=== PATIENT | female | born 1940 | race African-American/Black ===

== ENCOUNTER 2016-08-10 11:06 | Observation (INO) ==
[2016-08-10 11:22] LABS: URINE CULTURE PL NEEDED? NO
[2016-08-10 11:42] LABS: BILIRUBIN URINE NEGATIVE (NEGATIVE); BLOOD URINE NEGATIVE (NEGATIVE); CLARITY CLEAR (CLEAR); COLOR YELLOW; GLUCOSE URINE NEGATIVE (NEGATIVE); LEUKOCYTES URINE NEGATIVE (NEGATIVE); NITRITE URINE NEGATIVE (NEGATIVE); PROTEIN URINE NEGATIVE (NEGATIVE); SP GRAVITY URINE 1.015; URINE EPITHELIAL CELLS <10 /HPF (<10); URINE SOURCE CLEAN CATCH; URINE WBC <10 /HPF (<10); UROBILINOGEN URINE NORMAL
[2016-08-10 11:49] LABS: MANUAL DIFF NEEDED? NO
[2016-08-10 11:53] LABS: BASO% 0.5 % (0.0-0.8); EOS# 0.47 X1000 (0.0-0.7); EOS% 4.5 % (0.0-10.0); HEMATOCRIT 34.5 % (37.0-47.0); HEMOGLOBIN 11.2 g/dL (12.0-16.0); IMM GRAN# 0.02 X1000 (0.0-0.04); IMM GRAN% 0.2 % (0.0-0.5); LYMPH% 27.9 % (20.5-51.1); MCH 29.6 PG (27-31); MCHC 32.5 g/dL (33-37); MONO# 0.75 X1000 (0.11-0.59); MONO% 7.2 % (1.7-9.3); MPV 10.6 FL (7.4-10.4); NEUT% 59.7 % (42.2-75.2); PLT 227 X1000 (130-400); RBC 3.79 XMIL (4.2-5.4)
[2016-08-10 12:11] LABS: INR 0.99 (0.86-1.15); PROTIME 13.4 Seconds (12.1-15.5)
[2016-08-10 12:12] LABS: PTT PL 28.5 Seconds (22.6-43.9)
[2016-08-10 12:18] LABS: ALBUMIN 4.1 g/dL (3.5-5.0); POTASSIUM 4.7 mmol/L (3.5-5.1); TOTAL BILIRUBIN 0.6 mg/dL (0.20-1.00); TOTAL PROTEIN 6.8 g/dL (6.3-8.3)
--- NOTE | 2016-08-10 12:19 | PROVIDER DOCUMENTATION ---
HPI-Syncope/Dizziness - General Chief Complaint: B/P Problems Stated Complaint: B/P PROB Time Seen by Provider: 08/10/16 12:00 Source: patient Allergies/Adverse Reactions: Patient Allergies Allergy/AdvReac Type Severity Reaction Status Date / Time No Known Allergies Allergy Unverified 12/28/12 20:38 Home Medications: Home Medication List Medication Instructions Recorded Confirmed Last Taken Type Hydrocodone/Acetaminophen [Vicodin 1 each PO TID PRN #21 tablet 02/13/13 Unknown Rx 5-300 mg Tablet] - History of Present Illness-Syncope/Dizzy Nature of Presenting Problem: patient is a 75 yo F that presents low BP x 24 hours. She reports no new meds or chest pain. She has had dizziness and shortness of breath. Patient has boot on left leg due to fx 5th metatarsal. patient has history chf Onset/Duration: reports: gradual, 24 hours ago Timing: reports: still present, constant Recently Seen Here or By Another Healthcare Provider: No - Dizziness Severity in ED: reports: moderate Dizziness Related Current/Associated Symptoms: reports: lightheaded, dizzy, lightheaded. denies: nausea/vomiting, pale, weak pulse Any recent trauma/injury?: reports: none Modifying Factors: improves with: nothing Patient usually:: reports: walks without assistance Review of Systems - Adult - REVIEW OF SYSTEMS - ADULT Constitutional: denies: chills, fever Eyes: denies: decreased vision, blurred vision, double vision Ears, Nose, Mouth & Throat: denies: ear discharge, ear pain, sinus problem, throat pain, throat swelling Cardiovascular: denies: chest pain, palpitations, syncope Respiratory: reports: shortness of breath. denies: cough, wheezing Gastrointestinal: denies: abdominal pain, diarrhea, nausea, vomiting Genitourinary: reports: no symptoms reported Musculoskeletal: reports: no symptoms reported Integumentary: reports: no symptoms reported Neurological: reports: dizziness/vertigo. denies: headache/migraines, seizure, syncope Psychiatric: reports: no symptoms reported Endocrine: reports: no symptoms reported Hematologic/Lymphatic: reports: no symptoms reported Allergic/Immunologic: reports: no symptoms reported All Other Systems: Reviewed and Negative Past History - Adult - PAST MEDICAL HISTORY-ADULT Review of Records: reports: Old Records Reviewed, Nursing Assessment Review, Medications Reviewed Cardiovascular: reports: CHF, HTN, hyperlipidemia Respiratory: reports: asthma, sleep apnea Musculoskeletal: reports: chronic pain Psychiatric: reports: anxiety - PRIOR SURGERIES/PROCEDURES Surgical/Procedure History: reports: hysterectomy, joint replacement (tka), back /neck (x3back) - IMMUNIZATION STATUS Childhood Immunizations: See Nurse Assessment Flu Vaccine: See Nurse Assessment - FAMILY HISTORY Family History: reviewed, not pertinent - SOCIAL HISTORY Smoking: quit greater than 1 year, cigarettes Living Situation: family Physical Exam-General - PHYSICAL EXAM-ADULT Initial Vital Signs Reviewed: Yes - CONSTITUTIONAL General Appearance: alert, mild distress - EYES Eyes: PERRL/EOMI, pink conjunctivae - HEAD, EARS, NOSE, MOUTH & THROAT HENMT: normocephalic/atraumatic, moist mucous membranes, normal ENT inspection - NECK Neck: full range of motion, normal inspection - RESPIRATORY Respiratory: lungs clear, normal breath sounds, no respiratory distress, no accessory muscle use - CARDIOVASCULAR Cardiovascular: no gallop, no murmur, bradycardia - GASTROINTESTINAL (ABDOMEN) Abdominal Exam: normal bowel sounds, non tender, soft, no organomegaly, no pulsatile mass - MUSCULOSKELETAL Extremity: no calf tenderness, normal capillary refill, pelvis stable, other ( ortho boot to left lower leg) - SKIN Integumentary: normal color, normal turgor, warm/dry - NEUROLOGIC Neurologic: grossly normal, no motor/sensory deficits - PSYCHIATRIC Psych/Mental Status: normal mood/affect, normal thought content, normal thought process, oriented x 3 Progress - PLAN OF CARE/RESULTS Progress/Plan/Lab Results: Vital Signs - 8 hr 08/10/16 11:10 08/10/16 12:12 Temperature 97.6 F Pulse Rate 46 L 42 L Respiratory Rate 19 14 Blood Pressure 98/56 99/66 O2 Sat by Pulse Oximetry 98 97 Laboratory Results - last 24 hr 08/10/16 08/10/16 08/10/16 11:17 11:39 11:39 WBC 10.38 RBC 3.79 L Hgb 11.2 L Hct 34.5 L MCV 91.0 MCH 29.6 MCHC 32.5 L RDW Std Deviation 16.1 H Plt Count 227 MPV 10.6 H Immature Gran % (Auto) 0.2 Neut % (Auto) 59.7 Lymph % (Auto) 27.9 Phillips % (Auto) 7.2 Eos % (Auto) 4.5 Baso % (Auto) 0.5 Immature Gran # (Auto) 0.02 Neut # (Auto) 6.19 Lymph # (Auto) 2.90 Phillips # (Auto) 0.75 H Eos # (Auto) 0.47 Baso # (Auto) 0.05 PT INR APTT (Factor Assay) D-Dimer Sodium 133 L Potassium 4.7 Chloride 98 Carbon Dioxide 24 L Anion Gap 12 BUN 19 Creatinine 1.1 H Estimated GFR/1.73 m2 49 BUN/Creatinine Ratio 17 Glucose 97 Calculated Osmolality 269 Calcium 9.0 Magnesium Total Bilirubin 0.60 AST 20 ALT 18 Alkaline Phosphatase 103 Creatine Kinase 104 Troponin T Total Protein 6.8 Albumin 4.1 Globulin 3.0 Albumin/Globulin Ratio 2.0 Plasma Lactate TSH Urine Source CLEAN CATCH Urine Color YELLOW Urine Clarity CLEAR Urine pH 6.0 Ur Specific [place] 1.015 Urine Protein NEGATIVE Urine Ketones NEGATIVE Urine Blood NEGATIVE Urine Nitrite NEGATIVE Urine Bilirubin NEGATIVE Urine Urobilinogen NORMAL Urine WBC NEGATIVE Urine Microscopic WBC <10 Ur Epithelial Cells <10 Urine Bacteria 1+ Urine Glucose NEGATIVE 08/10/16 08/10/16 08/10/16 11:39 11:39 11:39 WBC RBC Hgb Hct MCV MCH MCHC RDW Std Deviation Plt Count MPV Immature Gran % (Auto) Neut % (Auto) Lymph % (Auto) Phillips % (Auto) Eos % (Auto) Baso % (Auto) Immature Gran # (Auto) Neut # (Auto) Lymph # (Auto) Phillips # (Auto) Eos # (Auto) Baso # (Auto) PT 13.4 INR 0.99 APTT (Factor Assay) 28.5 D-Dimer Sodium Potassium Chloride Carbon Dioxide Anion Gap BUN Creatinine Estimated GFR/1.73 m2 BUN/Creatinine Ratio Glucose Calculated Osmolality Calcium Magnesium Total Bilirubin AST ALT Alkaline Phosphatase Creatine Kinase Troponin T < 0.010 Total Protein Albumin Globulin Albumin/Globulin Ratio Plasma Lactate 1.0 TSH Urine Source Urine Color Urine Clarity Urine pH Ur Specific [place] Urine Protein Urine Ketones Urine Blood Urine Nitrite Urine Bilirubin Urine Urobilinogen Urine WBC Urine Microscopic WBC Ur Epithelial Cells Urine Bacteria Urine Glucose 08/10/16 08/10/16 08/10/16 11:39 11:39 11:39 WBC RBC Hgb Hct MCV MCH MCHC RDW Std Deviation Plt Count MPV Immature Gran % (Auto) Neut % (Auto) Lymph % (Auto) Phillips % (Auto) Eos % (Auto) Baso % (Auto) Immature Gran # (Auto) Neut # (Auto) Lymph # (Auto) Phillips # (Auto) Eos # (Auto) Baso # (Auto) PT INR APTT (Factor Assay) D-Dimer 0.87 H Sodium Potassium Chloride Carbon Dioxide Anion Gap BUN Creatinine Estimated GFR/1.73 m2 BUN/Creatinine Ratio Glucose Calculated Osmolality Calcium Magnesium 2.3 Total Bilirubin AST ALT Alkaline Phosphatase Creatine Kinase Troponin T Total Protein Albumin Globulin Albumin/Globulin Ratio Plasma Lactate TSH 7.06 H Urine Source Urine Color Urine Clarity Urine pH Ur Specific [place] Urine Protein Urine Ketones Urine Blood Urine Nitrite Urine Bilirubin Urine Urobilinogen Urine WBC Urine Microscopic WBC Ur Epithelial Cells Urine Bacteria Urine Glucose Orders Category Date Time Status Cardiac Monitoring DIRECTED Care 08/10/16 11:14 Active IV Insertion ORDERED Care 08/10/16 11:14 Completed ANGIOGRAM/PULMONARY ARTERIES [CT] Stat Exams 08/10/16 13:35 Taken CHEST-2 VIEWS [RAD] Stat Exams 08/10/16 11:14 Draft BLOOD CULTURE [BLDCUL] Stat Lab 08/10/16 11:14 Ordered CBC WITH DIFF [HEME] Stat Lab 08/10/16 11:39 Completed CK PROFILE [SP CHEM] Stat Lab 08/10/16 11:39 Completed COMPREHENSIVE METABOLIC PANEL [CHEM] Stat Lab 08/10/16 11:39 Completed D-DIMER PL [COAG] Stat Lab 08/10/16 11:39 Completed LACTATE, PLASMA [CHEM] Stat Lab 08/10/16 11:39 Completed MAGNESIUM [CHEM] Stat Lab 08/10/16 11:39 Completed PROTIME WITH INR PL [COAG] Stat Lab 08/10/16 11:[address] [COAG] Stat Lab 08/10/16 11:39 Completed TROPONIN T Stat Lab 08/10/16 11:39 Completed TSH Stat Lab 08/10/16 11:[address] W/POSS RFLX CULT [URINALYSIS] Stat Lab 08/10/16 11:17 Completed Oxygen Device Stat Oth 08/10/16 11:14 Active EKG [EKG] Stat Ther 08/10/16 12:24 Draft 1337-ct pe study ordered due to elevated dimer Result Diagrams: 08/10/16 11:39 08/10/16 11:39 - EKG 1 Time of EKG reading by physician:: 12:30 EKG Read and Signed by:: Armaan Dhaliwal EKG Interpretation (*Must complete 3 of following elements*): Abnormal Rate: 43 Rhythm: Sinus bradycardia(marked) [place]: normal QRS: normal, NSIVCD ST Wave: non-specific ST changes - XRAY 1 XRAY Study: Chest Impression: Abnormal XRAY Interpretation: stable, calcified nodes and granuloma - CT/MRI 1 CT Study: Angiogram (PE) Impression: Abnormal CT Results: granuloman, no PE - CONSULTS/PCP/HOSPITALIST Notification #1 *Consult/PCP/Hospitalist*: radio electronics technician for hospitalist Time Discussed: 14:27 Consult Disposition: Will see in ED, Admit Departure - Departure Time of Disposition Decision: 14:27 DIAGNOSIS: Dizziness, Bradycardia, Shortness of breath Hypothyroidism Qualifiers: Hypothyroidism type: acquired Qualified Code(s): E03.9 - Hypothyroidism, unspecified Disposition: ADMITTED INPATIENT 09 Certified Medical Emergency: Emergent Condition: Stable Referrals and Follow-Ups: Manny Finn MD [Primary Care Provider] -
--- NOTE | 2016-08-10 12:42 | Diag Imaging Result Document ---
PROCEDURE NAME: CHEST-2 VIEWS - 08/10/2016 TWO VIEWS OF THE CHEST: FINDINGS: There are calcified nodes in the subcarina and both carisa. There is a calcified granuloma in the lingula. Compared to 12/21/2012, there has been no significant change in the appearance of the chest. IMPRESSION: Stable chest.
--- NOTE | 2016-08-10 13:04 | EKG Report ---
Test Performed on : 08/10/2016 12:30:17 PM Test Reason : dizzines, hr 30s to 40s Blood Pressure : / mmHG Vent. Rate : 043 BPM Atrial Rate : 043 BPM P-R Int : 178 ms QRS Dur : 088 ms QT Int : 490 ms P-R-T Axes : 042 -09 017 degrees QTc Int : 414 ms Marked sinus bradycardia. Nonspecific T wave abnormality Abnormal ECG No previous ECGs available Unconfirmed Result
--- NOTE | 2016-08-10 14:32 | Diag Imaging Result Document ---
PROCEDURE NAME: ANGIOGRAM/PULMONARY ARTERIES - 08/10/2016 CT CHEST WITH INTRAVENOUS CONTRAST. FINDINGS: Normal opacification of the pulmonary arteries and their major branches. No filling defects. No pleural effusions. No cardiomegaly. Moderate atherosclerosis. No aortic dissection. There are many calcified mediastinal and hilar lymph nodes and there is a calcified granuloma inferiorly in the left upper lobe with a questionable additional 4 mm granuloma anteriorly in the left upper lobe. No consolidation. No bronchiectasis. IMPRESSION: 1. No pulmonary emboli. 2. There is evidence of a prior granulomatous infection. A preliminary report was given at 2:12 p.m.
--- NOTE | 2016-08-10 16:10 | HISTORY AND PHYSICAL ---
PRIMARY CARE PHYSICIAN: Dr. Finn. CHIEF COMPLAINT: Decreased blood pressure, dizziness and shortness of breath x24 hours. HISTORY OF PRESENTING ILLNESS: This is a 75-year-old female who presents to [facility] with complaints of low blood pressure, dizziness and shortness of breath for the past 24 hours that had progressively worsened. When she arrived to the emergency room, she was noted to have a pulse of 46 and a blood pressure of 98/56. She has a D- dimer of 0.87. Pulmonary arteriogram was obtained that showed no pulmonary emboli. It is noted that she is on several blood pressure medications, including metoprolol, amlodipine, lisinopril, spironolactone. This is most likely the cause of the bradycardia and hypotension, but we will admit her, hold some of her medications, evaluate and treat. PAST MEDICAL HISTORY: Hypertension, dyslipidemia, rheumatoid arthritis, anemia, fracture of the fifth metatarsal of her foot, CHF, asthma and sleep apnea. PAST SURGICAL HISTORY: A hysterectomy, total knee arthroscopy, and back surgery x3. FAMILY HISTORY: Noncontributory. SOCIAL HISTORY: She currently lives with family. Denies any tobacco use currently stating she has been quit for about 30 years. Denies any alcohol or illicit drug use. ALLERGIES: She has no known drug allergies. HOME MEDICATIONS: We will hold her Norvasc 10 mg p.o. daily. Metoprolol 25 mg p.o. daily will be held. We will continue her: 1. Lipitor 40 mg p.o. daily. 2. Folic acid 2 mg p.o. daily. 3. Lisinopril 5 mg p.o. daily. 4. Omeprazole 20 mg p.o. daily. 5. Oxycodone 10 one p.o. t.i.d. 6. Spironolactone 25 mg p.o. daily. 7. Tizanidine 4 mg p.o. t.i.d. 8. Desyrel 100 mg p.o. at bedtime. LABORATORY DATA: Showed a white blood cell count of 10.38, hemoglobin 11.2, hematocrit 34.5, platelets 227. PT and INR of 13.4 and 0.99 with a D-dimer of 0.87. Sodium 133, potassium 4.7, chloride 98, CO2 24, BUN of 19, creatinine 1.1. Magnesium 2.3. Creatine kinase 104. Troponin less than 0.010. Plasma lactate of 1. TSH of 7.06. Urinalysis was negative. RADIOLOGIC DATA: Chest x-ray: Stable chest. EKG: Sinus bradycardia at 43. Pulmonary arteriogram showed no pulmonary emboli, and evidence of a prior granulomatous infection. REVIEW OF SYSTEMS: She denied any fever, chills, blurred vision. She is positive for dizziness, shortness of breath, and a low blood pressure. She denied any chest pain, coughing, abdominal pain, constipation, diarrhea, burning or hurting with urination. PHYSICAL EXAMINATION: VITAL SIGNS: On arrival, she had a temperature of 97.6 degrees, pulse 46, respirations 19, blood pressure 98/56, satting 98% on room air. GENERAL: This is a 75-year-old, female, who is lying in the bed and answers questions appropriately. HEENT: Normocephalic and atraumatic. The pupils are equal, round, reactive to light. The extraocular movements are intact. The oropharynx and nares are clear. NECK: Supple. LUNGS: Clear to auscultation bilaterally with equal lung expansion and chest wall movement. HEART: With regular rhythm. Bradycardia noted. No murmurs, rubs or gallops. ABDOMEN: Soft, nontender, nondistended. Bowel sounds are present x4 quadrants. EXTREMITIES: There is no clubbing, cyanosis, or edema. NEUROLOGICAL: The cranial nerves 2-12 are grossly intact. ASSESSMENT: 1. Symptomatic bradycardia. 2. Hypotension. 3. Elevated D-dimer. 4. Dyspnea. PLAN: She is being admitted to the medical unit at [facility]. We will place her on telemetry. We are going to hold her beta juliet and her calcium channel juliet at this time. Will continue her other home medications as previously identified. If her heart rate and blood pressure do not improve with holding her 2 blood pressure medicines, then we may need to have cardiology input for the possibility of a pacemaker. We will recheck a CBC, BMP in the a.m. Dictated by GLENIS Kramer for Dao Gonzales MD cc: GLENIS Kramer MD Akram Haggag, MD
[2016-08-10] MEDS: ZANAFLEX PO SCH (17:44)
[2016-08-10] MEDS: PERCOCET-10 PO SCH (17:44)
[2016-08-10] MEDS: DESYREL PO SCH (20:08)
[2016-08-10] MEDS: NS 1,000 ML IV SCH (21:43)
[2016-08-11 05:44] LABS: MANUAL DIFF NEEDED? NO
[2016-08-11 05:54] LABS: BASO% 0.5 % (0.0-0.8); EOS% 5.4 % (0.0-10.0); HEMOGLOBIN 10.7 g/dL (12.0-16.0); IMM GRAN# 0.02 X1000 (0.0-0.04); IMM GRAN% 0.2 % (0.0-0.5); LYMPH# 2.89 X1000 (1.2-3.4); LYMPH% 31.3 % (20.5-51.1); MCH 29.4 PG (27-31); MCHC 32.4 g/dL (33-37); MCV 90.7 FL (81-99); MONO# 0.65 X1000 (0.11-0.59); MPV 9.5 FL (7.4-10.4); NEUT% 55.6 % (42.2-75.2); PLT 256 X1000 (130-400); RBC 3.64 XMIL (4.2-5.4)
[2016-08-11] MEDS: PRILOSEC PO SCH (06:07)
[2016-08-11 06:10] LABS: AGAP 11; BUN 16 mg/dL (8-22); CALCIUM 8.9 mg/dL (8.8-10.2); CHLORIDE 105 mmol/L (98-107); COSMO 278; POTASSIUM 4.1 mmol/L (3.5-5.1); SODIUM 139 mmol/L (136-145); TCO2 23 mmol/L (25-35)
[2016-08-11] MEDS ORDERED: LIDODERM TOP PRN (08:32)
[2016-08-11] MEDS ORDERED: FOLIC ACID PO SCH (09:00)
[2016-08-11] MEDS ORDERED: PRINIVIL PO SCH (09:00)
[2016-08-11] MEDS ORDERED: LIPITOR PO SCH (09:00)
[2016-08-11] MEDS ORDERED: ALDACTONE PO SCH (09:00)
[2016-08-11] MEDS ORDERED: PATADAY 0.2% OPH SOLUTION BOTH EYES SCH (09:00)
[2016-08-11] MEDS ORDERED: SINGULAIR PO SCH (09:00)
[2016-08-11] MEDS: PERCOCET-10 PO SCH ×3 (09:41→20:16)
[2016-08-11] MEDS: ZANAFLEX PO SCH ×3 (09:42→20:17)
--- NOTE | 2016-08-11 12:48 | PROGRESS NOTE ---
DATE: 08/11/2016 SUBJECTIVE: This patient states that she is feeling much better, she is not complaining of chest pain or shortness of breath. Just mild dizziness when she tries to get up and walk but compared with yesterday she feels better. I stopped the blood pressure medications yesterday especially the beta juliet and the heart rate is still below 60, but compared with yesterday, it is better. Yesterday the heart rate was around 40 and today high 50s. Cardiology department will evaluate this patient. OBJECTIVE: Vital Signs: Temperature 97.8 degrees, pulse 56, respiratory rate 18, blood pressure 120/82. O2 saturation 98 on room air. HEENT: Head normocephalic. No trauma. PERRLA. Neck: Supple. No JVD. No masses. Central trachea. Chest: Clear to auscultation. No wheezing. No rales. Cardiovascular: RRR. Bradycardic. Abdomen: Soft, nontender, nondistended. No hepatosplenomegaly. Extremities: No edema. No clubbing. No cyanosis. Neurological: The patient is alert, oriented x3. No focal neurological deficits. LABORATORY DATA: WBC 9.2, hemoglobin 10.7, hematocrit 33, platelet 256,000. Sodium 139, potassium 4.1, chloride 105, bicarbonate 23, BUN 16, creatinine 0.7, glucose 92, calcium 8.9. ASSESSMENT AND PLAN: 1. Symptomatic bradycardia. This patient is feeling better. Cardiology Department will evaluate this patient. We are going to keep this patient 1 more day to monitor this patient with telemetry. I will continue holding the beta juliet. 2. Hypertension. The blood pressure is better controlled. Continue to monitor. 3. Elevated D-dimer. We will monitor. 4. Dyspnea resolved. 5. High TSH. I asked for a T4 and I repeated the TSH and now the result is normal. I was thinking about a subclinical hypothyroidism but given the fact that this patient has now a normal TSH and T4 that has been ruled out. cc: Dao Gonzales MD
--- NOTE | 2016-08-11 13:25 | CONSULTATION ---
DATE OF CONSULTATION: 08/11/2016 IDENTIFYING DATA: A 75-year-old lady who was admitted with hypotension, bradycardia, and dizziness. HISTORY OF PRESENT ILLNESS: She has history of hypertension, dyslipidemia, and has history of heart failure, and presented to the hospital with dizziness and some shortness of breath over the last 24 hours. When she was at home, she says her blood pressures were low in the 80s and had a low heart rate, as well. When she came to the emergency room, blood pressure was 98/56 and heart rate was 46 beats per minute. She had a D-dimer which was 0.87. Pulmonary arteriogram was done, which showed no pulmonary emboli. She is on multiple blood pressure medications, including metoprolol, amlodipine, lisinopril, and spironolactone. She denies chest pain. There are no palpitations. There was no stephen syncopal episode. 14-POINT REVIEW OF SYSTEMS: Gastrointestinal: There is no history of nausea, vomiting, diarrhea. There is no history of hematemesis or melena. Central Nervous System: No focal weakness to suggest a CVA or TIA. Genitourinary: There is no dysuria or hematuria. PAST MEDICAL HISTORY: 1. Hypertension. 2. History of heart failure. 3. Rheumatoid arthritis. 4. Anemia. 5. Fracture of the 5th metatarsal in the foot. 6. Asthma. 7. Sleep apnea. PAST SURGICAL HISTORY: Hysterectomy, knee arthroscopy, back surgery. FAMILY HISTORY: Noncontributory. SOCIAL HISTORY: She denies tobacco or alcohol abuse. HOME MEDICATIONS: Amlodipine 10 mg a day; metoprolol 25 mg a day; spironolactone 25 mg a day; lisinopril 5 mg a day; atorvastatin 40 mg a day; Trazodone 100; tizanidine 4 mg p.o. t.i.d.; oxycodone; methotrexate; olopatadine eye drops; folic acid; Montelukast 10. Currently, her metoprolol and amlodipine are being held. ALLERGIES: She is not known to be allergic to any medications. PHYSICAL EXAMINATION: Vital Signs: Blood pressure was 120/82. Cardiovascular System: Normal jugular venous pressure. There was no thyromegaly, no carotid bruit. First and 2nd heart sounds were heard. There was no S3 gallop. Respiratory System: Normal air entry. There are no crepitations or rhonchi. Abdomen: Soft, nontender. There was no guarding or rigidity. Bowel sounds were heard. Central nervous system: Alert, oriented, and was moving all 4 extremities. HEENT: Atraumatic, normocephalic. Pupils were reacting to light. DIAGNOSTIC DATA: WBC 9.24, hemoglobin 10.7, hematocrit 33, platelet count of 256,000. Sodium 139, potassium 4.1, BUN 16, creatinine 0.7. Cardiac enzymes negative. CT scan to rule out pulmonary emboli was negative for pulmonary embolism. ASSESSMENT AND PLAN: Ms. Lily Wolfe is a 75-year-old lady who has hypertension, heart failure, and hand arthritis, and was admitted with feeling dizzy, low heart rate and low blood pressure noted at home. Electrocardiogram revealed a sinus bradycardia. There were no acute ST or T-wave changes to suggest ischemia or infarction. RECOMMENDATIONS: 1. Will get an echocardiogram to assess cardiac and valvular function. Heart medications, beta- blockers, amlodipine have been held and her blood pressure is better. Would recommend leaving her on the lisinopril and withholding the amlodipine and beta-juliet, given her bradycardia. 2. We will monitor her overnight. If her blood pressure and rhythm are stable, she can be discharged and follow up with her primary core inserter. cc: Mike Becerra MD
--- NOTE | 2016-08-11 16:00 | ECHO REPORT ---
ORDER DATE: 08/11/2016 ECHOCARDIOGRAPHIC MEASUREMENTS: 1. Interventricular septum 0.8. 2. Left ventricular posterior wall 0.8. 3. Diastolic diameter 4.8. 4. Left atrium 2.9. 5. Aorta 3.6. SUMMARY OF 2-DIMENSIONAL IMAGIN. Technically suboptimal study. Poor acoustic window. 2. Pulmonic valve not well visualized. 3. Aortic valve leaflets trileaflet, mildly sclerosed. 4. There is trace pulmonary regurgitation. 5. Normal left ventricular cavity size. Estimated ejection fraction of 60% to 65%. 6. Mitral valve was normal. Tricuspid valve was normal. 7. There is mild mitral regurgitation. Mild tricuspid regurgitation. Peak velocity across the tricuspid valve was 2.7 m/sec, pulmonary artery systolic pressure of 39 mmHg. 8. By Doppler studies, there is no aortic stenosis. There is trace aortic regurgitation. 9. There is no pericardial effusion or obvious intracardiac mass or thrombus seen. cc: MD Miranda Rivera CRNP
[2016-08-11] MEDS: NS 1,000 ML IV SCH (18:29)
[2016-08-11] MEDS: DESYREL PO SCH (20:16)
[2016-08-11] MEDS ORDERED: KLONOPIN PO SCH (21:00)
[2016-08-12] MEDS: NS 1,000 ML IV SCH ×2 (05:59→06:45)
[2016-08-12] MEDS: PRILOSEC PO SCH (05:59)
[2016-08-12 06:58] VITALS: BP 136/84
[2016-08-12] MEDS ORDERED: LOVENOX SUBQ SCH (09:00)
--- NOTE | 2016-08-12 21:16 | DISCHARGE SUMMARY ---
ADMISSION DATE: 08/10/2016 DISCHARGE DATE: 08/12/2016 DISCHARGE DIAGNOSIS: 1. Symptomatic bradycardia. 2. Hypertension . 3. Elevated D-dimer. 4. History of congestive heart failure. 5. Asthma and sleep apnea. 6. Dyslipidemia. 7. Rheumatoid arthritis. HOSPITAL COURSE: A 75 years old female who presented to [facility] to the emergency department with a chief complaint of low blood pressure, dizziness and shortness of breath for the past 24 hours that had progressively worsened. When she arrived to the emergency department she was noted to have a pulse of 46 and blood pressure of 98/56, she has a D-dimer of 0.[address] angiogram of the chest did not show any pulmonary emboli, when we checked her home medication we noted that this patient was on beta juliet and calcium channel juliet, we stopped all those medications and we kept this patient in the hospital. Next day this patient continues to have a low heart rate but compared with the previous day was better it was around high 50s without any symptoms, Cardiology Department evaluated this patient and they recommended to keep this patient without beta juliet and calcium channel juliet and keep this patient also for 1 more day in the hospital with telemetry. 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 CONDITION AT DISCHARGE: Upon discharge the patient was in stable medical condition. PHYSICAL EXAMINATION: Vital signs: Temperature 97.3 degrees, pulse 70, respiratory rate 18, blood pressure 136/84, oxygen saturation 98 on room air. HEENT: Head normocephalic. No trauma. PERRLA. Neck: Supple. No JVD. No masses. Central trachea. Cardiovascular: RRR. No murmurs. Normal heart rate. Chest: Clear to auscultation. No wheezing. No rales. Abdomen: Soft, nontender, nondistended. No hepatosplenomegaly. Extremities: No edema. No cyanosis. Neurological: The patient is alert and oriented x3. No focal neurological deficits. LABORATORY: WBC 9.2, hemoglobin 10.7, hematocrit 33, platelet 256,000. Sodium 139, potassium 4.1, chloride 105, bicarbonate 23, BUN 16, creatinine 0.7 glucose 92, calcium 8.9. DISCHARGE MEDICATIONS: Tizanidine 4 mg p.o. t.i.d., oxycodone/acetaminophen 10/325 one dose p.o. t.i.d., olopatadine 0.2% ophthalmic solution 1 drop both eyes daily, lidocaine 5% patch 1 each top daily p.r.n., montelukast 10 mg p.o. daily, methotrexate 12.5 mg p.o. as directed, clonazepam 1 mg p.o. at bedtime, spironolactone 25 mg p.o. daily, trazodone 100 mg p.o. at bedtime, lisinopril 5 mg p.o. daily, folic acid 2 mg p.o. daily, omeprazole 2 mg p.o. daily, atorvastatin 40 mg p.o. daily. We recommended to stop the calcium channel juliet and the beta juliet. TIME DISCHARGING THIS PATIENT: 40 minutes. cc: Dao Gonzales MD
== END 2016-08-12 08:24 | disposition home or self-care (01) ==
LOC: P.MEDSURG 11:06 → P.ED 11:06
PROVIDERS: ATTEND Internal Medicine